=== PATIENT | male | born 1980 | race Caucasian/White ===

== ENCOUNTER 2025-03-04 13:46 | Emergency (ER) | payer SELFPAY ==
[~2025-03-04] VITALS: Ht 175.3 cm; Wt 104.0 kg
[2025-03-04 14:35] VITALS: O2SAT 99
[2025-03-04] MEDS: KETOROLAC 30MG/ML VIAL IM ONE (15:38)
[2025-03-04] MEDS ORDERED: IBUP-1455 MT (16:39)
[2025-03-04 17:00] VITALS: BP 120/81; PULSE 87; RESP 15; TEMP 36.8; O2SAT 99
== END 2025-03-04 17:02 | disposition home or self-care (01) ==
LOC: ER 13:46
DX: S80.02XA Contusion of left knee, initial encounter (principal); M25.561 Pain in right knee; W19.XXXA Unspecified fall, initial encounter; Y93.89 Activity, other specified; Y92.89 Other specified places as the place of occurrence of the external cause; Y99.8 Other external cause status
CPT/HCPCS: 73562; 96372; 99283; J1885; Z7610 ×2; A4606